=== PATIENT | female | born 1975 | race Caucasian/White ===

== ENCOUNTER 2017-03-13 23:40 | Emergency (ER) | payer OTHER ==
[~2017-03-13] VITALS: Ht 170.2 cm; Wt 61.2 kg
[~2017-03-13 23:40] MED LIST: HYDR15SO4 PO
[2017-03-14] MEDS ORDERED: FAMO20TA5 PO (00:05)
[2017-03-14] MEDS ORDERED: PRED50TA PO (00:05)
[2017-03-14] MEDS ORDERED: EPIPEN 2-P0.3 MG/0.3 IJ (00:05)
--- NOTE | 2017-03-14 00:05 | PHYS DOC ---
Past Medical History Past Medical History: No Pertinent History Past Surgical History: Additional Past Surgical Histo: ectopic Alcohol Use: Occasionally Drug Use: None Adult General Chief Complaint Chief Complaint: ALLERGIC REACTION HPI HPI Patient is a 41 year old female with history of latex allergy who presents today complaining of allergic reaction. Patient states yesterday she spray painted. Patient states this morning she woke up covered up in hives. She states she feels her throat is itchy. Patient denies any throat or tongue swelling. Denies any difficulty breathing. Review of Systems Review of Systems Constitutional: Denies fever or chills [] Eyes: Denies change in visual acuity, redness, or eye pain [] HENT: Reports throat itching. Denies nasal congestion or sore throat [] Respiratory: Denies cough or shortness of breath [] Cardiovascular: No additional information not addressed in HPI [] GI: Denies abdominal pain, nausea, vomiting, bloody stools or diarrhea [] : Denies dysuria or hematuria [] Musculoskeletal: Denies back pain or joint pain [] Integument: rash Neurologic: Denies headache, focal weakness or sensory changes [] Current Medications Current Medications Current Medications Medications (Trade) Dose Ordered Sig/Juan Start Time Stop Time Status Last Admin Dose Admin Diphenhydramine HCl (Benadryl) 50 mg 1X ONCE 03/14/17 00:15 03/14/17 00:16 DC 03/14/17 00:10 50 MG Famotidine (Pepcid) 20 mg 1X ONCE 03/14/17 00:15 03/14/17 00:16 DC 03/14/17 00:11 20 MG Methylprednisolone Sodium Succinate (SOLU-Medrol 125MG VIAL) 125 mg 1X ONCE 03/14/17 00:15 03/14/17 00:16 DC 03/14/17 00:10 125 MG Sodium Chloride 1,000 ml @ 1,000 mls/hr 1X ONCE 03/14/17 00:15 03/14/17 01:14 03/14/17 00:10 1,000 MLS/HR Allergies Allergies Allergies Coded Allergies Type Severity Reaction Last Updated Verified latex Allergy Severe anaphalaxis 05/03/16 Yes morphine Allergy Severe anaphalaxis 05/03/16 Yes codeine Allergy Intermediate 05/03/16 Yes Physical Exam Physical Exam Constitutional: Well developed, well nourished, no acute distress, non-toxic appearance. [] HENT: Normocephalic, atraumatic, bilateral external ears normal, oropharynx moist, no oral exudates, nose normal. Airway is open Eyes: PERRLA, EOMI, conjunctiva normal, no discharge. [] Neck: Normal range of motion, no tenderness, supple, no stridor. [] Cardiovascular:Heart rate regular rhythm, no murmur [] Lungs & Thorax: Bilateral breath sounds clear to auscultation [] Abdomen: Bowel sounds normal, soft, no tenderness, no masses, no pulsatile masses. [] Skin: Warm, dry, no erythema, patient has moderate amount of wheals on bilateral lower extremities, mild amount of similar rash on bilateral upper extremities. Back: No tenderness, no CVA tenderness. [] Extremities: No tenderness, no cyanosis, no clubbing, ROM intact, no edema. [] Neurologic: Alert and oriented X 3, normal motor function, normal sensory function, no focal deficits noted. [] Psychologic: Affect normal, judgement normal, mood normal. [] Current Patient Data Vital Signs Vital Signs Date Time Temp Pulse Resp B/P (MAP) Pulse Ox O2 Delivery O2 Flow Rate FiO2 03/13/17 23:48 98.4 67 18 100 Room Air 98.4 EKG EKG [] Radiology/Procedures Radiology/Procedures [] Course & Med Decision Making Course & Med Decision Making Pertinent Labs and Imaging studies reviewed. (See chart for details) Patient is in the ED with complaints of allergic reaction. She is allergic to latex and yesterday spray painted. She is also complaining of slight throat itching. Her tongue throat and lips are not swollen, airway is open. She does have a rash on bilateral upper and lower extremities. She was given Benadryl and Solu-Medrol and Pepcid in the ED as well as a liter of fluid, she feels better. She was discharged with prednisone Pepcid and instructed to continue taking Benadryl. She is instructed to avoid spray painting or products with latex. She is to follow-up with her PCP in 1-7 days. She was instructed to return to the ED at any point symptoms worsen. Dragon Disclaimer Dragon Disclaimer This electronic medical record was generated, in whole or in part, using a voice recognition dictation system. Departure Departure Impression: Primary Impression: Allergic reaction Disposition: HOME, SELF-CARE Condition: STABLE Referrals: KATHY HSU (PCP) Follow-up with your doctor in one to 7 days Patient Instructions: Latex Allergy Additional Instructions: You were seen with an allergic reaction. Please follow-up with your primary care doctor in the next 1-7 days. Use the EpiPen prescribed as needed. Take the prescribed medications as ordered. Come back to the ED at any point symptoms worsen. Ensure you take Benadryl every 4 hours until symptoms are gone. Scripts Famotidine (FAMOTIDINE) 20 Mg Tablet 20 MG PO DAILY, #14 TAB Prov: MARLIN MOYER APRN 03/14/17 Prednisone (PREDNISONE) 50 Mg Tablet 1 TAB PO DAILY, #5 TAB Prov: MARLIN MOYER APRN 03/14/17 Epinephrine (EPIPEN 2-MYRNA) 0.3 Mg/0.3 Ml Auto.injct 0.3 MG IJ 1X, #1 SYR Prov: MARLIN MOYER APRN 03/14/17 Problem Qualifiers Primary Impression: Allergic reaction Encounter type: initial encounter Qualified Codes: T78.40XA - Allergy, unspecified, initial encounter MARLIN MOYER APRN Mar 14, 2017 00:05
[2017-03-14] MEDS ORDERED: methylPREDNISolone SOD SUCC PF 125 MG/2 ML VIAL. IV ONE (00:15)
[2017-03-14] MEDS ORDERED: FAMOTIDINE 20 MG/2 ML VIAL IVP ONE (00:15)
[2017-03-14] MEDS ORDERED: IV NORMAL SALINE 1000ML BAG 1,000 ML IV ONE (00:15)
[2017-03-14] MEDS ORDERED: diphenhydrAMINE 50 MG/ML VIAL IVP ONE (00:15)
[2017-03-14 00:46] VITALS: BP 146/91
== END 2017-03-14 00:46 | disposition home or self-care (01) ==
LOC: ER 23:40
DX: T78.40XA Allergy, unspecified, initial encounter (principal); Z88.5 Allergy status to narcotic agent; Z91.040 Latex allergy status
CPT/HCPCS: 96361; 96374; 96375; 99284; J1200; J2930; J7030; S0028